=== PATIENT | male | born 1960 | race Caucasian/White ===

== ENCOUNTER → 2020-06-10 15:45 | Outpatient (CLI) | payer BC, SELFPAY ==
--- NOTE | ~2020-06-10 | XR_ITS ---
EXAMINATION:XR cervical spine 4-5V DATE: 06/10/2020 16:44 INDICATION: Cervicalgia with 3 weeks of neck pain radiating to the left shoulder TECHNIQUE: AP, lateral, lateral swimmers and odontoid views of the cervical spine are provided. COMPARISON: None FINDINGS: Odontoid is intact. Normal atlantoaxial interval. Mild reversal of the normal lordosis in the lower cervical spine with moderate disc height loss and associated degenerative endplate changes with moder ate right-sided and severe left-sided uncovertebral osteoarthritis at C5-C6 and C6-C7. Mild disc heig ht loss with mild left-sided uncovertebral osteoarthritis at C4-C5. Vertebral body heights are normal . Multilevel mild cervical facet osteoarthritis. Prevertebral soft tissues are normal. Visualized api loren of lungs are clear. IMPRESSION: 1. 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
--- NOTE | ~2020-06-10 | XR_ITS ---
EXAMINATION: XR shoulder LT min 2V DATE: 06/10/2020 16:44 INDICATION: Left shoulder pain TECHNIQUE: AP internally and externally rotated, AP oblique externally rotated and axillary views of the left shoulder were obtained. COMPARISON: None FINDINGS: Normal alignment. No fracture. Glenohumeral joint is normal. Acromioclavicular joint is normal. Soft tissues are unremarkable. Visualized portions of the lungs are clear. IMPRESSION: Negative left shoulder radiographs. 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
== END ==
PROVIDERS: PCP Internal Medicine; Visit Provider Physician Assistant
DX: M25.512 Pain in left shoulder (principal); M47.892 Other spondylosis, cervical region
CPT/HCPCS: 72050; 73030

== ENCOUNTER 2022-04-08 00:49 | Day surgery (SDC) | payer BC, SELFPAY ==
[2022-03-31 13:18] VITALS: BMI 23.8
--- NOTE | 2022-04-07 13:22 | PM.HPGS ---
History of Present Illness History of Present Illness Consent: Risks, benefits, and alternatives have been discussed and questions answered. Patient agrees to proceed with procedure. Chief complaint: Hx of Colon polyps Narrative: Estrada Cote is a 61 year old male referred for colonoscopy. He has had colonoscopy with polypectomy in 2009 and 2016. [facility] Family History Family History Father Patient's father is Mother Patient's mother is in good health, Onset Age: 79 Social History Social History (Updated 02/16/22 @ 15:56 by Becca Lee MA) Smoking status: Former smoker Tobacco type: cigarettes Second hand tobacco smoke exposure: No Alcohol intake: never Substance use: never Lack of Transportation: No Lack of Food: Never True Current Housing: I Have Housing Concerned About Future Housing: No Difficulty Paying Gas/Electric Bills: No Difficulty Paying for Meds: No Currently Unemployed: No Education: Associate Degree Difficulty w/ Childcare or Family Care: No Living arrangements: alone Gender identity (if verbalized by the patient): Male Spiritual care concerns: No Meds Home Medications and Allergies Home Medications Medication Instructions Recorded Confirmed Type jkvpittw-scp-lxtyo acid 0.4 1 tablet PO DAILY 03/17/19 03/31/22 History mg-lycopene 300 mcg-lutein 250 mcg tablet (Centrum Silver) vitamin B complex 1 tablet PO DAILY 03/17/19 03/31/22 History apple cider vinegar 500 mg tablet 500 mg PO DAILY 03/20/19 03/31/22 History fenofibric acid (choline) 135 mg 135 mg PO DAILY #90 caps 06/03/21 03/31/22 Rx capsule,delayed release (Trilipix) metformin 500 mg tablet See Rx Instructions .Route 01/08/22 03/31/22 Rx .COMPLEX #270 tabs Allergies Allergy/AdvReac Type Severity Reaction Status Date / Time No Known Allergies Allergy Mild Verified 04/08/22 08:09 Assessment and Plan Assessment and plan (1) Colon cancer screening: Code(s): Z12.11 - Encounter for screening for malignant neoplasm of colon Status: Acute Assessment and Plan: Colonoscopy with possible biopsy or polypectomy or cautery or injection of substances.
[2022-04-08 08:10] VITALS: BP 137/84; PULSE 83; RESP 18; TEMP 36.2; O2SAT 97
[2022-04-08 08:25] LABS: Glucose Point of Care 171 mg/dl (65-105)
--- NOTE | 2022-04-08 09:07 | P.PNAN_ITS ---
Anes - Initial Pre Proc Eval Procedure: Operation Date: 04/08/22 09:45 Proposed Procedures p Screening Colonoscopy - Tre Yanez MD Date/Time: 04/08/22 09:07 Surgeon: Tre Yanez MD Pre Op Diagnosis: Hx of Colon polyps Patient Data Age: 61 Gender: M Height: 1.85 m Weight: 81.3 kg Last Vital Signs Temp 97.2 F L 04/08/22 08:10 Pulse 83 04/08/22 08:10 Resp 18 04/08/22 08:10 BP 137/84 04/08/22 08:10 Pulse Ox 97 04/08/22 08:10 O2 Del Method Room Air 04/08/22 08:10 Allergies Allergy/AdvReac Type Severity Reaction Status Date / Time No Known Allergies Allergy Mild Verified 04/08/22 08:09 Home Medications Medication Instructions Recorded Confirmed Type kufpzeru-pbb-grjzx acid 0.4 1 tablet PO DAILY 03/17/19 03/31/22 History mg-lycopene 300 mcg-lutein 250 mcg tablet (Centrum Silver) vitamin B complex 1 tablet PO DAILY 03/17/19 03/31/22 History apple cider vinegar 500 mg tablet 500 mg PO DAILY 03/20/19 03/31/22 History fenofibric acid (choline) 135 mg 135 mg PO DAILY #90 caps 06/03/21 03/31/22 Rx capsule,delayed release (Trilipix) metformin 500 mg tablet See Rx Instructions .Route 01/08/22 03/31/22 Rx .COMPLEX #270 tabs Laboratory Tests 04/08/22 08:16 POC Capillary Glucose 171 mg/dl H mg/dl (65-105) Patient hx anesthesia problems: none Family hx anesthesia problems: none Results Review: All pre-operative results and documents have been reviewed as part of the pre- operative evaluation. [facility] Family History Family History Father Patient's father is Mother Patient's mother is in good health, Onset Age: 79 Social History Social History (Updated 02/16/22 @ 15:56 by Becca Lee MA) Smoking status: Former smoker Tobacco type: cigarettes Second hand tobacco smoke exposure: No Alcohol intake: never Substance use: never Lack of Transportation: No Lack of Food: Never True Current Housing: I Have Housing Concerned About Future Housing: No Difficulty Paying Gas/Electric Bills: No Difficulty Paying for Meds: No Currently Unemployed: No Education: Associate Degree Difficulty w/ Childcare or Family Care: No Living arrangements: alone Gender identity (if verbalized by the patient): Male Spiritual care concerns: No Anes - Eval Final PreProcedure Day of Procedure 04/08/22 09:07 Patient weight: normal Heart: regular rate and rhythm Lungs: clear to auscultation Airway: Mallampati scale class II Neurological: alert and oriented Last oral intake: >/= 8 hours ASA classification: II Emergent: no Anesthetic plan: proceed Anesthesia type and monitoring: general GIVS and standard monitoring Results Review: All pre-operative results and documents have been reviewed as part of the pre- operative evaluation. Informed Consent: The patient's anesthetic plan and its attendant risks and benefits were di scussed with the patient/family/POA. Questions were solicited and answers provided to the satisfaction of the patient/family/POA.
[2022-04-08] MEDS: LACTATED RINGERS 1,000 ML 150 ML IV CONT (09:25)
[2022-04-08 09:28] VITALS: BP 106/62; PULSE 65; RESP 19; O2SAT 97
[2022-04-08 09:38] VITALS: BP 110/66; PULSE 61; RESP 19; O2SAT 98
[2022-04-08 09:48] VITALS: BP 123/67; PULSE 70; RESP 19; O2SAT 98
== END 2022-04-08 09:50 | disposition home or self-care (01) ==
PROVIDERS: PCP Internal Medicine; Visit Provider Internal Medicine Gastroenterology
PROC: 0DJD8ZZ Inspection of Lower Intestinal Tract, Via Natural or Artificial Opening Endoscopic (ICD-10-PCS; CPT 45378; principal; 2022-04-08 09:45)
DX: Z12.11 Encounter for screening for malignant neoplasm of colon (principal); K57.30 Diverticulosis of large intestine without perforation or abscess without bleeding; Z86.010 Personal history of colon polyps; Z79.84 Long term (current) use of oral hypoglycemic drugs; Z87.891 Personal history of nicotine dependence
CPT/HCPCS: 45378; 82948; J2704; J7120

== ENCOUNTER 2022-10-12 12:53 | Outpatient (CLI) | payer BC, SELFPAY ==
--- NOTE | ~2022-10-12 | CT_ITS ---
EXAMINATION: CT lung screening DATE: 10/12/2022 13:20 INDICATION: Lung cancer screening TECHNIQUE: Computed tomography (CT) of the chest was performed without intravenous contrast. The dose -length product was 110.79 mGy-cm. Automated exposure control and iterative reconstruction technique were employed. COMPARISON: CT dated 06/15/2008 FINDINGS: No significant pleural or pericardial effusion. Heart size normal. There are cholecystectom y clips. There are calcified granulomas of the spleen. No thoracic lymphadenopathy. Small echodense 1 .1 cm left thyroid mass, likely benign. There are calcified granulomas of the mediastinum and lungs. There are small left upper lobe nodules measuring 3 mm or less. There is a 3 mm right upper lobe nodu le. No endobronchial lesions. Mild thoracic spondylosis. No focal lytic or blastic lesions. IMPRESSION: 1. Lung-RADS category 2: Benign appearance or behavior. Continue annual screening with noncontrast lo w-dose chest CT in 12 months. Reviewed, dictated and finalized at location [] IMPRESSION: 1. Lung-RADS category 2: Benign appearance or behavior. Continue annual screeni ng with noncontrast low-dose chest CT in 12 months.
== END 2022-10-12 12:54 | disposition home or self-care (01) ==
PROVIDERS: PCP Internal Medicine; Visit Provider Internal Medicine
DX: Z12.2 Encounter for screening for malignant neoplasm of respiratory organs (principal); Z87.891 Personal history of nicotine dependence
CPT/HCPCS: 71271

== ENCOUNTER 2022-10-30 16:35 | Emergency (ER) | payer BC, SELFPAY ==
[2022-10-30] VITALS (8 sets, daily range): BP systolic 102–135; BP diastolic 51–98; PULSE 68–93; RESP 16–20; TEMP 36.6; O2SAT 95–100
--- NOTE | ~2022-10-30 | CT_ITS ---
EXAMINATION: CT brain wo con DATE: 10/30/2022 18:41 INDICATION: fall . TECHNIQUE: Computed tomography (CT) of the head was performed without intravenous contrast. The mA wa s adjusted according to patient size. Iterative reconstruction technique was employed. The dose-lengt h product was 681.00 mGy-cm. COMPARISON: None. FINDINGS: No acute intracranial hemorrhage or extra-axial fluid collection. No hydrocephalus, mass, or herniation. No acute ischemic infarct. Unremarkable dural venous sinus attenuation. No acute osseous abnormality. The aerated spaces are clear. Mild atrophy and chronic white matter change. Atherosclerotic intracranial calcification. Bilateral b donnie ganglia calcification. IMPRESSION: No acute intracranial process. Reviewed, dictated and finalized at location K.
--- NOTE | 2022-10-30 16:45 | ECG_ITS ---
Measurements Intervals [place] Rate: 83 P: 65 CA: 162 QRS: 13 QRSD: 88 T: 33 QT: 363 QTc: 427 Interpretive Statements SINUS RHYTHM WITH SINUS ARRHYTHMIA WITHIN NORMAL LIMITS NO PREVIOUS ECG AVAILABLE FOR COMPARISON Electronically Signed On 10-30-2022 17:24:56 CDT by Heri Meza M.D.
[2022-10-30 16:55] LABS: Basophils Absolute Auto 0.1 K/mm3 (0.0-0.1); Basophils Percent Auto 0.9 % (0.2-1.2); Eosinophils Absolute Auto 0.1 K/mm3 (0-0.3); Eosinophils Percent Auto 1.4 % (0-4.4); Hematocrit 37.2 % (42.0-52.0); Hemoglobin 12.4 g/dL (14.0-18.0); Immature Granulocyte Absolute 0.01 K/mm3 (0.00-0.031); Immature Granulocyte Percent A 0.1 % (0-0.5); Lymphocytes Absolute Auto 1.16 K/mm3 (0.9-3.2); Lymphocytes Percent Auto 15.2 % (18.3-44.2); Mean Corpuscular HGB Conc 33.3 g/dl (32-36); Mean Corpuscular Hemoglobin 30.3 pg (26-34); Mean Platelet Volume 9.7 fl (7.4-10.4); Monocytes Absolute Auto 0.6 K/mm3 (0.1-0.6); Monocytes Percent Auto 7.9 % (2.6-8.5); Neutrophils Absolute Auto 5.7 K/mm3 (1.3-6.7); Neutrophils Percent Auto 74.5 % (45.5-73.1); Platelet Count Result 243 k/mm3 (150-375); Red Blood Count 4.09 M/mm3 (4.6-6.20); White Blood Count 7.6 K/mm3 (4.5-10.0)
[2022-10-30 17:05] LABS: Alanine Aminotransferase 21 U/L (6-50); Alkaline Phosphatase 54 U/L (38-126); Anion Gap 9 mmol/L (8-16); Aspartate Amino Transferase 28 U/L (17-59); Bilirubin,Total 0.5 mg/dL (0.2-1.3); Blood Urea Nitrogen 26 mg/dL (9-20); Calcium 9.4 mg/dL (8.4-10.2); Carbon Dioxide 26 mmol/L (22-30); Chloride 105 mmol/L (98-107); Estimated CRCL calculation 63 ml/min; Estimated Glomerular Filt Rate > 60; Glucose 238 mg/dL (65-110); Potassium 4.4 mmol/L (3.4-5.0); Sodium 140 mmol/L (137-145)
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
[2022-10-30] MEDS: SODIUM CHLORIDE 0.9% IV 1,000 ML 999 ML IV CONT (18:24)
[2022-10-30] MEDS: TETANUS,DIPHTHERIA,AC PERTUSSIS ADULT (0.5 ML) BOOSTRIX IM (18:24)
[2022-10-30 18:41] LABS: Troponin I < 0.012 ng/mL (0.000-0.034)
== END 2022-10-30 21:23 | disposition home or self-care (01) ==
PROVIDERS: Emergency Medicine; Emergency Provider Emergency Medicine; PCP Internal Medicine
DX: E86.0 Dehydration (principal); S01.21XA Laceration without foreign body of nose, initial encounter; Z23 Encounter for immunization; E78.5 Hyperlipidemia, unspecified; E11.9 Type 2 diabetes mellitus without complications; Z87.891 Personal history of nicotine dependence; Z79.84 Long term (current) use of oral hypoglycemic drugs; V18.4XXA Pedal cycle driver injured in noncollision transport accident in traffic accident, initial encounter; Y93.55 Activity, bike riding
CPT/HCPCS: 12011; 36415; 70450; 80053; 84484; 85025; 90471; 90715; 93005; 96360; 96361; 99284; J7030